=== PATIENT | female | born 1990 | race Caucasian/White ===

== ENCOUNTER 2016-07-04 09:34 | Emergency (ER) | payer BC ==
[2016-07-04 10:36] VITALS: BP 115/68
--- NOTE | 2016-07-04 10:59 | UC ---
Respiratory Complaint HPI - HPI Summary HPI Summary: 25 yo female with sore throat/ear ache/cough and chest tightness Has had fever and chills - History of Current Complaint Chief Complaint: UCRespiratory Stated Complaint: THROAT,FEVER,ABDOMINAL PAIN Time Seen by Provider: 07/04/16 10:50 Hx Obtained From: Patient Hx Last Menstrual Period: 07/03/15 Onset/Duration: Gradual Onset, Lasting Days Timing: Constant Severity Initially: Mild Severity Currently: Moderate Pain Intensity: 2 Character: Cough: Nonproductive Aggravating Factors: Nothing Alleviating Factors: Bronchodilator Associated Signs And Symptoms: Positive: Wheezing - Allergies/Home Medications Allergies/Adverse Reactions: Allergies Allergy/AdvReac Type Severity Reaction Status Date / Time Amoxicillin [From Augmentin] Allergy LARGE HIVES Verified 07/04/16 10:29 Clavulanic Acid Allergy LARGE HIVES Verified 07/04/16 10:29 [From Augmentin] nickel, gold, cobalt Allergy Rash Uncoded 07/04/16 10:29 Home Medications: Home Medications Control 1 tab PO DAILY 07/04/16 [History Confirmed 07/04/16] Pseudoephedrine HCL ER TAB* [Sudafed 12 Hour*] 120 mg PO BID 07/04/16 [History Confirmed 07/04/16] PMH/Surg Hx/FS Hx/Imm Hx Endocrine History Of: Denies: Diabetes Cardiovascular History Of: Denies: Hypertension, Pacemaker/ICD Respiratory History Of: Reports: Asthma - PRN INHALER GI/ History Of: Denies: Renal Disease - Surgical History Surgical History: Yes Surgery Procedure, Year, and Place: WISDOM TEETH REMOVAL-DR. FARIA'S OFFICE. RT WRIST GANGLION CYST [id number]. Egg donation 02/2016 - Family History Known Family History: Positive: Hypertension - Social History Alcohol Use: Occasionally Alcohol Amount: 4 DRINKS PER WEEK Substance Use Type: None Smoking Status (MU): Never Smoked Tobacco Review of Systems Constitutional: Fever, Chills Skin: Negative Eyes: Negative ENT: Sore Throat, Ear Ache Respiratory: Cough Cardiovascular: Negative Gastrointestinal: Negative Genitourinary: Negative Motor: Negative Neurovascular: Negative Musculoskeletal: Negative Neurological: Negative Psychological: Negative All Other Systems Reviewed And Are Negative: Yes Physical Exam Triage Information Reviewed: Yes Appearance: Well-Appearing, No Pain Distress, Well-Nourished Vital Signs: Initial Vital Signs Temp 98.5 F 07/04/16 10:12 Pulse 83 07/04/16 10:12 Resp 14 07/04/16 10:12 BP 115/68 07/04/16 10:12 Pulse Ox 98 07/04/16 10:12 Vital Signs Reviewed: Yes Eyes: Positive: Conjunctiva Clear ENT: Positive: Hearing grossly normal, Pharyngeal erythema, Nasal congestion, Nasal drainage, TM red - right. Negative: Tonsillar swelling, Tonsillar exudate , Trismus, Muffled/hoarse voice Dental: Negative: Dental Fracture @, Abscess @ Neck: Positive: Supple, Enlarged Nodes @ - ant cervical Respiratory: Positive: Lungs clear, Normal breath sounds, No respiratory distress Cardiovascular: Positive: RRR, No Murmur, Pulses Normal Abdomen Description: Positive: Nontender, No Organomegaly, Soft Musculoskeletal: Positive: ROM Intact, No Edema Neurological: Positive: Alert, Muscle Tone Normal Psychological Exam: Normal Skin Exam: Normal UC Diagnostic Evaluation - Laboratory O2 Sat by Pulse Oximetry: 98 - normal/not hypoxic Respiratory Course/Dx - Differential Dx/Diagnosis Provider Diagnoses: right otitis media. acute bronchitis Discharge - Discharge Plan Condition: Stable Disposition: HOME Prescriptions: Azithromycin TAB* [Zithromax TAB*] 250 mg PO DAILY #6 tab Prednisone [Deltasone] 40 mg PO DAILY #10 tab Patient Education Materials: Acute Bronchitis (ED) Forms: *Work Release Referrals: No Primary Care Phys,NOPCP [Primary Care Provider] - Additional Instructions: use your inhaler 2 puffs 4x day for 5 days recheck in 4 days if not better
== END 2016-07-04 11:06 | disposition home or self-care (01) ==
LOC: UCCORT 09:34
DX: H66.91 Otitis media, unspecified, right ear (principal); J40 Bronchitis, not specified as acute or chronic; Z88.0 Allergy status to penicillin; Z88.1 Allergy status to other antibiotic agents
CPT/HCPCS: 81025; 99212; G0463

== ENCOUNTER 2016-10-26 20:20 | Emergency (ER) | payer BC ==
[2016-10-26 20:33] VITALS: BP 118/66
--- NOTE | 2016-10-26 20:49 | UC ---
Dizzy HPI - History Of Current Complaint Chief Complaint: UCDizziness Stated Complaint: DIZZINESS Time Seen by Provider: 10/26/16 20:43 Hx Obtained From: Patient Hx Last Menstrual Period: 10/15/16 ?: No Onset/Duration: Sudden Onset - dizziness like a rocking back and forth like being on a boat. Was from the afternoon into the evening up until yesterday., Lasting Weeks - 1, Worse Since - since this morning. Timing: Constant Severity Initially: Mild Severity Currently: Moderate Character: Dizzy - rocking back and forth, side to side. Aggravating Factor(s): Position Change - will worsen for 5-6 seconds., Supine To Erect Alleviating Factor(s): Rest, Lying Down Associated Signs And Symptoms: Positive: Tinnitus - has right ear tinnitus chronically, Unsteady Gait. Negative: Nausea, Vomiting, Diaphoresis - Risk Factors Cardiac Risk Factors: Negative CVA Risk Factor: Oral Contraceptives - Allergies/Home Medications Allergies/Adverse Reactions: Allergies Allergy/AdvReac Type Severity Reaction Status Date / Time Amoxicillin [From Augmentin] Allergy LARGE HIVES Verified 10/26/16 20:33 Clavulanic Acid Allergy LARGE HIVES Verified 10/26/16 20:33 [From Augmentin] nickel, gold, cobalt Allergy Rash Uncoded 10/26/16 20:33 Home Medications: Home Medications Acetaminophen [Acetaminophen Extra Stren] 1,000 mg PO Q6H PRN 10/26/16 [History Confirmed 10/26/16] Allergy Im 1 udc IM SEE INSTRUCTIONS 10/26/16 [History] Beclomethasone Dipropionate [Qvar] 2 inh IN BID 10/26/16 [History Confirmed 01/05] Cholecalciferol [Vitamin D3] 1,000 unit PO DAILY 10/26/16 [History Confirmed 01/05] Ethinyl Estrad/Desogest(NF) [Emoquette 0.03/0.15 (NF)] 1 tab PO DAILY 10/26/16 [ History Confirmed 10/26/16] Naproxen Sodium [Naproxen Sodium 220 mg] 440 mg PO DAILY 10/26/16 [History Confirmed 10/26/16] PMH/Surg Hx/FS Hx/Imm Hx Endocrine History Of: Denies: Diabetes Cardiovascular History Of: Denies: Hypertension, Pacemaker/ICD Respiratory History Of: Reports: Asthma - PRN INHALER GI/ History Of: Denies: Renal Disease - Surgical History Surgical History: Yes Surgery Procedure, Year, and Place: WISDOM TEETH REMOVAL-DR. FARIA'S OFFICE. RT WRIST GANGLION CYST REMOVED-2009, 2014-[facility]. I&D OF RIGHT WRIST CYST X 2 SINCE LAST SX. - Family History Known Family History: Positive: None, Unknown, Hypertension, Diabetes Negative: Cardiac Disease - Social History Occupation: Employed Full-time Lives: Alone Alcohol Use: Occasionally Alcohol Amount: 1-2 PER WK Substance Use Type: None Smoking Status (MU): Never Smoked Tobacco Have You Smoked in the Last Year: No Review of Systems ENT: Ear Ache All Other Systems Reviewed And Are Negative: Yes Physical Exam Triage Information Reviewed: Yes Completion Of Physical Exam Limited Due To: Extremis Appearance: Well-Appearing - but being careful not to move her head., No Pain Distress, Well-Nourished Vital Signs: Initial Vital Signs Temp 98 F 10/26/16 20:25 Pulse 77 10/26/16 20:25 Resp 18 10/26/16 20:25 BP 118/66 10/26/16 20:25 Pulse Ox 98 10/26/16 20:25 Vital Signs Reviewed: Yes Eyes: Positive: Conjunctiva Clear, Other: - positive lateral nystagmus ENT: Positive: Nasal congestion - with allergic changes, TMs normal Dental Exam: Normal Neck exam: Normal Respiratory: Positive: Wheezing - scant expiratory with cough Cardiovascular Exam: Normal Musculoskeletal Exam: Normal Neurological: Positive: Other: - lateral nystagmus. Psychological Exam: Normal Skin Exam: Normal Dizzy Course/Dx - Differential Dx/Diagnosis Differential Diagnosis/HQI/PQRI: Benign Paroxysmal Positional Vertigo, Meniere' s Disease, Vasovagal Reaction Provider Diagnoses: Vertigo. Allergic rhinitis Discharge - Discharge Plan Condition: Stable Disposition: HOME Prescriptions: Meclizine TAB* [Antivert 12.5 TAB*] 25 mg PO TID PRN #30 tab PRN Reason: Vertigo predniSONE TAB* [Deltasone TAB*] 20 mg PO DAILY #18 tab Patient Education Materials: Vertigo (ED), Allergic Rhinitis (ED), Prednisone ( By mouth) Referrals: No Primary Care Phys,NOPCP [Primary Care Provider] - If Needed (If getting worse go to the ER.) Additional Instructions: NEILMED SINUS RINSE: CHECK OUT AT [email or web address] Saline nasal wash helps with mucous, allergies and congestion. It can be used up to twice a day or only as needed. Use lukewarm tap water. It does not have to be sterilized or distilled water. Do 1/3 on each side and snort out of both nostrils. Repeat the process with 1/6 of the bottle on each side with snorting in between to finish the solution in the bottle
[2016-10-26] MEDS ORDERED: Meclizine TAB* 12.5 MG PO ONE (21:05)
[2016-10-26] MEDS ORDERED: predniSONE TAB* 20 MG PO ONE (21:05)
== END 2016-10-26 21:24 | disposition home or self-care (01) ==
LOC: UCCORT 20:20
DX: R42 Dizziness and giddiness (principal); J45.909 Unspecified asthma, uncomplicated; H93.11 Tinnitus, right ear; Z88.1 Allergy status to other antibiotic agents
CPT/HCPCS: 99212; A9270-GY; G0463; J7512

== ENCOUNTER 2017-04-04 10:25 | Emergency (ER) | payer BC ==
[2017-04-04 11:47] VITALS: BP 112/72
--- NOTE | 2017-04-04 12:04 | UC ---
Throat Pain/Nasal Connor HPI - HPI Summary HPI Summary: per rolled ham lacer "sore throat for a couple of days. tongue is sore and white. she uses Qvar daily and is concerned that she may have thrush." mild ST, no fever. used albuterol recently b/c she had sx after running d/t not using the aerochamber recently. no cough or wheezing now. - History of Current Complaint Chief Complaint: UCGeneralIllness Stated Complaint: WORRIED ABOUT THRUSH Time Seen by Provider: 04/04/17 11:41 Hx Last Menstrual Period: nexplanon - Allergies/Home Medications Allergies/Adverse Reactions: Allergies Allergy/AdvReac Type Severity Reaction Status Date / Time Amoxicillin [From Augmentin] Allergy LARGE HIVES Verified 04/04/17 11:47 Clavulanic Acid Allergy LARGE HIVES Verified 04/04/17 11:47 [From Augmentin] nickel, gold, cobalt Allergy Rash Uncoded 04/04/17 11:47 Home Medications: Home Medications Etonogestrel [Nexplanon] 68 mg IMPLANT ONCE 04/04/17 [History Confirmed 04/04/17 ] PMH/Surg Hx/FS Hx/Imm Hx Previously Healthy: Yes Respiratory History: Asthma - Surgical History Surgical History: Yes Surgery Procedure, Year, and Place: WISDOM TEETH REMOVAL-DR. FARIA'S OFFICE. RT WRIST GANGLION CYST REMOVED-2009, 2014-[facility]. I&D OF RIGHT WRIST CYST X 2 SINCE LAST SX. - Family History Known Family History: Positive: None, Unknown, Hypertension, Diabetes Negative: Cardiac Disease, Respiratory Disease - no asthma - Social History Alcohol Use: Occasionally Alcohol Amount: 1-2 PER WK Substance Use Type: None Smoking Status (MU): Never Smoked Tobacco Have You Smoked in the Last Year: No Review of Systems Constitutional: Negative Skin: Negative Eyes: Other - tongue white coating ENT: Negative Respiratory: Negative Cardiovascular: Negative Gastrointestinal: Negative Genitourinary: Negative Motor: Negative Neurovascular: Negative Musculoskeletal: Negative Neurological: Negative Psychological: Negative Is Patient Immunocompromised?: No All Other Systems Reviewed And Are Negative: Yes Physical Exam Triage Information Reviewed: Yes Appearance: Well-Appearing, No Pain Distress, Well-Nourished - very pleasant Vital Signs: Initial Vital Signs Temp 98.3 F 04/04/17 11:42 Pulse 86 04/04/17 11:42 Resp 14 04/04/17 11:42 BP 112/72 04/04/17 11:42 Pulse Ox 97 04/04/17 11:42 Eye Exam: Normal ENT Exam: Normal ENT: Positive: Pharynx normal, TMs normal, Other: - tongue has thin white coating that cannot be removed coverring. OP - nml Dental Exam: Normal Neck exam: Normal Neck: Positive: Supple, Nontender, No Lymphadenopathy Respiratory: Positive: Lungs clear, Normal breath sounds. Negative: Crackles, Rhonchi, Stridor Cardiovascular Exam: Normal Cardiovascular: Positive: RRR, No Murmur, Pulses Normal Abdominal Exam: Normal Abdomen Description: Positive: Nontender, Soft Throat Pain/Nasal Course/Dx - Differential Dx/Diagnosis Differential Diagnosis/HQI/PQRI: Laryngitis, Peritonsillar Abscess, Pharyngitis , URI, Other - thrush Provider Diagnoses: oral candidiasis Discharge - Discharge Plan Condition: Stable Disposition: HOME Prescriptions: Nystatin SUSPENSION* 100,000 unit MT Q6HR #480 [facility] Patient Education Materials: Oral Candidiasis (ED) Referrals: No Primary Care Phys,NOPCP [Primary Care Provider] - Additional Instructions: follow up with your provider if your symptoms increase or persist.
== END 2017-04-04 12:16 | disposition home or self-care (01) ==
LOC: UCCORT 10:25
DX: B37.0 Candidal stomatitis (principal); Z88.1 Allergy status to other antibiotic agents; Z88.6 Allergy status to analgesic agent; Z91.048 Other nonmedicinal substance allergy status
CPT/HCPCS: 99212; G0463

== ENCOUNTER 2017-07-26 16:10 | Emergency (ER) | payer BC ==
--- OUTSIDE RECORDS SUMMARY | 2017-07-26 18:36 | XMS REPORT ---
:1990 External Reference #:[id number] Author Organization [facility] Address [address] [place] [address] Phone [phone] Care Team Providers Name Role Phone Maicol Garcia MD Care Team Information [employer] Worker Unavailable Payers Type Date Identification Numbers Payment Provider Subscriber Commercial Policy Number: [id number] BS [employer] Maryan You PayID: [id number] [address] [address] [place] [address] Problems Date Description Provider Status Onset: 10/07/2016 Exacerbation of moderate Catherine S. Fenstermacher, Active persistent asthma RPA-C Onset: 09/16/2016 Uncomplicated moderate persistent Catherine S. Fenstermacher, Active asthma RPA-C Onset: 01/24/2016 Mild persistent asthma Catherine S. Fenstermacher, Active RPA-C Onset: 01/24/2016 Allergic rhinitis Catherine S. Fenstermacher, Active RPA-C Onset: 01/24/2016 Allergic rhinitis due to pollen Catherine S. Fenstermacher, Active RPA-C Family History Date Family Member(s) Problem(s) Comments General No Current Problems Social History Type Date Description Comments Smoke-Free Home is smoke-free Pets 1 cat Smoking Patient has never smoked Smoking No Second Hand Smoke Exposure Allergies, Adverse Reactions, Alerts Date Description Reaction Status Severity Comments 01/24/2016 Augmentin active Medications Medication Date Status Form Strength Qnty SIG Indications Ordering Provider Proair HFA 06/03/ Active Aerosol 108(90Base 2units 2 puffs Maicol 2015 ) mcg/Act every 4 as Griffin Garcia MD needed Qvar 08/04/ Active Aerosol 80mcg/Act 1units Inhale 2 J45.30 Christopher 2016 puffs by Griffin Garcia MD inhalation route 2 times per day. Rinse mouth after use. Singulair / Active Tablets 10mg 30tabs Take 1 Christopher tablet (10 Griffin Garcia MD mg) by oral route once daily in the evening. Xyzal / Active Tablets 5mg 30tabs Take one Christopher 0000 tablet (5 Griffin Garcia MD mg) by oral route once daily as needed. Biotin / Active Tablets [id number] Unknown Maximum 0000 Strength Vitamin D / Active Unknown 0000 Nexplanon / Active Implant 68mg Unknown 0000 Prednisone 10/07/ Hx Tablets 10mg 30tabs Take 3 J45.41 Christopher 2016 - tablets by Griffin Garcia MD 03/19/ mouth twice 2017 a day for 5 days. Take with food. Cryselle-28 / Hx Tablets 0.3-30mg-m Unknown 0000 - cg 2016 Medications Administered in Office Medication Date Status Form Strength Qnty SIG Indications Ordering Provider Allergy 06/18/ Administered Injection Christopher Injection 2 2016 Griffin Garcia MD Or More Allergy 06/02/ Administered Injection Christopher Injection 2 2016 Griffin Garcia MD Or More Allergy 05/21/ Administered Injection Christopher Injection 2 2016 Griffin Garcia MD Or More Allergy 04/30/ Administered Injection Christopher Injection 2 2017 Griffin Garcia MD Or More Allergy 04/16/ Administered Injection Christopher Injection 2 2016 Griffin Garcia MD Or More Allergy 04/02/ Administered Injection Christopher Injection 2 2017 Griffin Garcia MD Or More Allergy 03/12/ Administered Injection Christopher Injection 2 2017 Griffin Garcia MD Or More Allergy 02/26/ Administered Injection Christopher Injection 2 2017 Griffin Garcia MD Or More Allergy 02/12/ Administered Injection Christopher Injection 2 2017 Griffin Gracia MD Or More Allergy 01/27/ Administered Injection Christopher Injection 2 2017 Griffin Garcia MD Or More Allergy 01/13/ Administered Injection Christopher Injection 2 2017 Griffin Garcia MD Or More Allergy 12/30/ Administered Injection Christopher Injection 2 2017 Griffin Garcia MD Or More Allergy 12/16/ Administered Injection Christopher Injection 2 2016 Griffin Garcia MD Or More Allergy 12/02/ Administered Injection Christopher Injection 2 2016 Griffin Garcia MD Or More Allergy 11/20/ Administered Injection Christopher Injection 2 2016 Griffin Garcia MD Or More Allergy 11/06/ Administered Injection Christopher Injection 2 2016 Griffin Garcia MD Or More Allergy 10/14/ Administered Injection Christopher Injection 2 2016 Griffin Garcia MD Or More Allergy 09/25/ Administered Injection Christopher Injection 2 2016 Griffin Garcia MD Or More Allergy 09/16/ Administered Injection Christopher Injection 2 2016 Griffin Garcia MD Or More Allergy 09/09/ Administered Injection Christopher Injection 2 2016 Griffin Garcia MD Or More Allergy 08/28/ Administered Injection Christopher Injection 2 2016 Griffin Garcia MD Or More Allergy 08/21/ Administered Injection Christopher Injection 2 2016 Griffin Garcia MD Or More Allergy 08/14/ Administered Injection Christopher Injection 2 2016 Griffin Garcia MD Or More Allergy 08/05/ Administered Injection Christopher Injection 2 2016 Griffin Garcia MD Or More Allergy 07/31/ Administered Injection Christopher Injection 2 2016 Griffin Garcia MD Or More Allergy 07/24/ Administered Injection Christopher Injection 2 2016 Griffin Garcia MD Or More Allergy 07/15/ Administered Injection Christopher Injection 2 2016 Griffin Garcia MD Or More Allergy 07/08/ Administered Injection Christopher Injection 2 2016 Griffin Garcia MD Or More Allergy 06/24/ Administered Injection Christopher Injection 2 2016 Griffin Garcia MD Or More Allergy 06/19/ Administered Injection Christopher Injection 2 2015 Griffin Garcia MD Or More Allergy 06/10/ Administered Injection Christopher Injection 2 2015 Griffin Garcia MD Or More Allergy 06/03/ Administered Injection Christopher Injection 2 2015 Griffin Garcia MD Or More Allergy 05/29/ Administered Injection Christopher Injection 2 2015 Griffin Garcia MD Or More Allergy 05/22/ Administered Injection Christopher Injection 2 2015 Griffin Garcia MD Or More Allergy 05/13/ Administered Injection Christopher Injection 2 2015 Griffin Garcia MD Or More Allergy 05/06/ Administered Injection Christopher Injection 2 2015 Griffin Garcia MD Or More Allergy 05/01/ Administered Injection Christopher Injection 2 2015 Griffin Garcia MD Or More Allergy 04/22/ Administered Injection Christopher Injection 2 2015 Griffin Garcia MD Or More Allergy 04/17/ Administered Injection Christopher Injection 2 2015 Griffin Garcia MD Or More Allergy 04/08/ Administered Injection Christopher Injection 2 2015 Griffin Garcia MD Or More Allergy 04/01/ Administered Injection Christopher Injection 2 2015 Griffin Garcia MD Or More Allergy 03/27/ Administered Injection Christopher Injection 2 2015 Griffin Garcia MD Or More Allergy 03/18/ Administered Injection Christopher Injection 2 2015 Griffin Garcia MD Or More Allergy 03/11/ Administered Injection Christopher Injection 2 2015 Griffni Garcia MD Or More Allergy 03/06/ Administered Injection Christopher Injection 2 2015 Griffin Garcia MD Or More Allergy 02/27/ Administered Injection Christopher Injection 2 2015 Griffin Garcia MD Or More Allergy 02/20/ Administered Injection Christopher Injection 2 2015 Griffin Garcia MD Or More Allergy 02/13/ Administered Injection Christopher Injection 2 2015 Griffin Garcia MD Or More Allergy 02/06/ Administered Injection Christopher Injection 2 2015 Griffin Garcia MD Or More Vital Signs Date Vital Result Comment 06/02/2017 Height 65 inches 5'5" Weight 160.00 lb BMI (Body Mass Index) 26.6 kg/m2 Heart Rate 64 /min Respiratory Rate 16 /min Body Temperature 98.1 F O2 % BldC Oximetry 98 % 03/19/2017 BP Systolic 108 mmHg BP Diastolic 64 mmHg Height 56 inches 4'8" Weight 162.00 lb BMI (Body Mass Index) 36.3 kg/m2 Heart Rate 97 /min Respiratory Rate 10 /min Body Temperature 98.4 F O2 % BldC Oximetry 97 % 09/16/2016 BP Systolic 124 mmHg BP Diastolic 77 mmHg Height 56 inches 4'8" Weight 170.00 lb BMI (Body Mass Index) 38.1 kg/m2 Heart Rate 69 /min Respiratory Rate 14 /min 03/18/2016 BP Systolic 120 mmHg BP Diastolic 60 mmHg Height 56 inches 4'8" Heart Rate 82 /min Respiratory Rate 12 /min O2 % BldC Oximetry 95 % 01/24/2016 BP Systolic 119 mmHg BP Diastolic 75 mmHg Height 65 inches 5'5" Weight 173.00 lb BMI (Body Mass Index) 28.8 kg/m2 Heart Rate 77 /min Respiratory Rate 16 /min Body Temperature 98.9 F O2 % BldC Oximetry 100 % Results Description No Information Procedures Date CPT Code Description Status 06/18/2017 98798 Allergy Injection 2 Or More Completed 06/02/2017 90647 Allergy Injection 2 Or More Completed 06/02/2017 73875 Nitric Oxide Gas Determination Completed 06/02/2017 22441 Bronchodilation Responsiveness Spirometry Pre/Post Completed Bronchodil Adm 05/21/2017 15582 Allergy Injection 2 Or More Completed 04/30/2017 37687 Allergy Injection 2 Or More Completed 04/16/2017 09259 Allergy Injection 2 Or More Completed 04/02/2017 14735 Allergy Injection 2 Or More Completed 03/19/2017 35257 Nitric Oxide Gas Determination Completed 03/19/2017 23459 Bronchodilation Responsiveness Spirometry Pre/Post Completed Bronchodil Adm 03/12/2017 41914 Allergy Injection 2 Or More Completed 02/26/2017 74938 Allergy Injection 2 Or More Completed 02/25/2017 94570 Allergy Antigens Single Or Multiple Completed 02/12/2017 37261 Allergy Injection 2 Or More Completed 01/27/2017 75173 Allergy Injection 2 Or More Completed 01/13/2017 17725 Allergy Injection 2 Or More Completed 12/30/2016 49323 Allergy Injection 2 Or More Completed 12/16/2016 82420 Allergy Injection 2 Or More Completed 12/02/2016 09384 Allergy Injection 2 Or More Completed 11/20/2016 80598 Allergy Injection 2 Or More Completed 11/06/2016 84594 Allergy Injection 2 Or More Completed 10/14/2016 14417 Allergy Injection 2 Or More Completed 10/07/2016 46357 Nitric Oxide Gas Determination Completed 09/25/2016 43990 Allergy Injection 2 Or More Completed 09/16/2016 45820 Allergy Injection 2 Or More Completed 09/16/2016 91849 Nitric Oxide Gas Determination Completed 09/16/2016 52316 Bronchodilation Responsiveness Spirometry Pre/Post Completed Bronchodil Adm 09/09/2016 75390 Allergy Injection 2 Or More Completed 08/28/2016 67803 Allergy Injection 2 Or More Completed 08/21/2016 74418 Allergy Injection 2 Or More Completed 08/14/2016 55500 Allergy Injection 2 Or More Completed 08/05/2016 92946 Allergy Injection 2 Or More Completed 07/31/2016 92050 Allergy Injection 2 Or More Completed 2016 04934 Allergy Injection 2 Or More Completed 07/15/2016 21260 Allergy Injection 2 Or More Completed 07/08/2016 64842 Allergy Injection 2 Or More Completed 06/24/2016 53841 Allergy Injection 2 Or More Completed 06/19/2016 43437 Allergy Injection 2 Or More Completed 06/10/2016 13594 Allergy Injection 2 Or More Completed 06/03/2016 72533 Allergy Injection 2 Or More Completed 05/29/2016 48404 Allergy Injection 2 Or More Completed 05/22/2016 42878 Allergy Injection 2 Or More Completed 05/13/2016 97110 Allergy Injection 2 Or More Completed 05/06/2016 32669 Allergy Injection 2 Or More Completed 05/01/2016 94317 Allergy Injection 2 Or More Completed 04/22/2016 15805 Allergy Injection 2 Or More Completed 04/17/2016 48001 Allergy Injection 2 Or More Completed 04/08/2016 45352 Allergy Injection 2 Or More Completed 04/01/2016 66235 Allergy Injection 2 Or More Completed 03/27/2016 52071 Allergy Injection 2 Or More Completed 03/18/2016 65902 Allergy Injection 2 Or More Completed 03/18/2016 26702 Bronchodilation Responsiveness Spirometry Pre/Post Completed Bronchodil Adm 03/11/2016 35507 Allergy Injection 2 Or More Completed 03/06/2016 34064 Allergy Injection 2 Or More Completed 02/28/2016 16439 Allergy Injection 2 Or More Completed 02/21/2016 64186 Allergy Injection 2 Or More Completed 02/14/2016 99963 Allergy Injection 2 Or More Completed 02/07/2016 87304 Allergy Injection 2 Or More Completed 01/30/2016 35922 Allergy Antigens Single Or Multiple Completed 01/24/2016 21417 Bronchodilation Responsiveness Spirometry Pre/Post Completed Bronchodil Adm Encounters Type Date Location Provider CPT E/M Dx Office Visit 06/02/2017 8:15[place] [address] J45.40 Office Visit 03/19/2017 3:30p Kee Bird RPA-C 55132 J45.40 J30.1 J30.89 Office Visit 10/07/2016 8:30a Kee Bird RPA-C 52959 J45.41 Office Visit 09/16/2016 3:30p Kee Bidr RPA-C 55150 J45.40 J30.1 J30.89 Office Visit 03/18/2016 3:30p Kee Bird RPA-C 98158 J45.30 J30.1 J30.89 Office Visit 01/24/2016 3:30p KeeKAPIL Brewer 61512 J30.1 J30.89 J45.30 Plan of Care Future Appointment(s):07/02/2017 3:55 pm - Injection 1 at [facility]/29/2018 3 :15 pm - KAPIL Elmore at [place]
[2017-07-26 18:47] VITALS: BP 107/65
--- NOTE | 2017-07-26 19:36 | RAD ---
INDICATION: Right knee pain after skiing injury COMPARISON: None TECHNIQUE: 4 view radiograph of the right knee. FINDINGS: The visualized bones are well-corticated and properly aligned. The joint spaces are properly maintained. There is no radiographic evidence of joint effusion. There is no acute fracture, dislocation or other focal bony abnormality. IMPRESSION: Normal knee radiograph as described above. If the patient's symptoms persist, follow-up imaging is recommended.
--- NOTE | 2017-07-26 19:54 | RAD ---
INDICATION: Left knee pain after a fall while skiing COMPARISON: None TECHNIQUE: 4 view radiograph of the left knee. FINDINGS: The visualized bones are well-corticated and properly aligned. The joint spaces are properly maintained. There is no radiographic evidence of joint effusion. There is no acute fracture, dislocation or other focal bony abnormality. IMPRESSION: Normal knee radiograph as described above. If the patient's symptoms persist, follow-up imaging is recommended.
--- NOTE | 2017-07-26 20:03 | UC ---
Knee Pain HPI - HPI Summary HPI Summary: Pt reports that she was skiing today and feel onto bilateral knees, C/O of right knee more painful than left. reports bilateral bruising. Pain with weight bearing and ROM - History of Current Complaint Chief Complaint: UCLowerExtremity Stated Complaint: RIGHT KNEE INJURY Time Seen by Provider: 07/26/17 19:04 Hx Obtained From: Patient Hx Last Menstrual Period: NEXPLANON ?: No Onset/Duration: Sudden Onset, Still Present Severity Initially: Mild Severity Currently: Moderate Pain Intensity: 4 Character: Dull, Aching Aggravating Factor(s): Movement, Weight Bearing, Prolonged Standing, Stairs Alleviating Factor(s): Rest, Position Associated Signs And Symptoms: Positive: Bruising - bilateral knees anterior Able to Bear Weight: Yes - with c/o pain - Risk Factors Septic Arthritis Risk Factor: Negative - Allergies/Home Medications Allergies/Adverse Reactions: Allergies Allergy/AdvReac Type Severity Reaction Status Date / Time amoxicillin [From Augmentin] Allergy Hives Verified 07/26/17 18:38 clavulanic acid Allergy Hives Verified 07/26/17 18:38 [From Augmentin] nickel, gold, cobalt Allergy Rash Uncoded 04/04/17 11:47 PMH/Surg Hx/FS Hx/Imm Hx Previously Healthy: Yes - Surgical History Surgical History: Yes Surgery Procedure, Year, and Place: WISDOM TEETH REMOVAL-DR. FARIA'S OFFICE. RT WRIST GANGLION CYST REMOVED-2009, 2014-[facility]. I&D OF RIGHT WRIST CYST X 2 SINCE LAST SX. - Family History Known Family History: Positive: None, Unknown, Hypertension, Diabetes Negative: Cardiac Disease, Respiratory Disease - no asthma - Social History Occupation: Employed Full-time Lives: With Family Alcohol Use: Weekly Alcohol Amount: 1-2 PER WK Substance Use Type: None Smoking Status (MU): Never Smoked Tobacco Have You Smoked in the Last Year: No Review of Systems Constitutional: Negative Skin: Bruising - bialteral knees/anterior Eyes: Negative ENT: Negative Respiratory: Negative Cardiovascular: Negative Gastrointestinal: Negative Genitourinary: Negative Motor: Decreased ROM - bialteral knee secondary to pain Neurovascular: Negative Musculoskeletal: Arthralgia - bialteral knees, Decreased ROM, Myalgia Neurological: Negative Psychological: Negative Is Patient Immunocompromised?: No All Other Systems Reviewed And Are Negative: Yes Physical Exam Triage Information Reviewed: Yes Appearance: Well-Appearing Vital Signs: Initial Vital Signs Temp 98.6 F 07/26/17 18:41 Pulse 76 07/26/17 18:41 Resp 20 07/26/17 18:41 BP 107/65 07/26/17 18:41 Pulse Ox 99 07/26/17 18:41 Vital Signs Reviewed: Yes Eye Exam: Normal ENT Exam: Normal Neck exam: Normal Respiratory: Positive: No respiratory distress Musculoskeletal Exam: Other Musculoskeletal: Positive: ROM Limited @ - bialteral knees secondary to apin, Other: - half dollar size ecchymosis bilateral; knees Neurological Exam: Normal Psychological Exam: Normal Skin Exam: Other - ecchymosis, bilateral knees/patella negative drawer, negative mcmurrays. Diagnostics - Radiology No standard instances Radiology Interpretation Completed By: Radiologist - Right knee: IMPRESSION: Normal knee radiograph as described above. Left knee: The visualized bones are well-corticated and properly aligned. The joint spaces are properly maintained. There is no radiographic evidence of joint effusion. There is no acute fracture , dislocation or other focal bony abnormality. IMPRESSION: Normal knee radiograph as described above. If the patient's symptoms persist, follow-up imaging is recommended. Knee Pain Course/Dx - Course Course Of Treatment: I discussed xray reports and referred pt to orthopedic provider for further evaluation and testing. Pt verbalized understanding and agreed to plan of care. - Differential Dx/Diagnosis Differential Diagnosis/HQI/PQRI: Contusion, Sprain, Strain Provider Diagnoses: bilateral knee contusion. bilateral knee pain. right knee sprain Discharge - Discharge Plan Condition: Stable Disposition: HOME Patient Education Materials: Contusion in Adults (ED), Knee Pain (ED), R.I.C.E. Treatment (ED) Referrals: Mark Leonard MD [Medical Doctor] - If Needed No Primary Care Phys,NOPCP [Primary Care Provider] -
== END 2017-07-26 20:13 | disposition home or self-care (01) ==
LOC: UCCORT 16:10
DX: S83.91XA Sprain of unspecified site of right knee, initial encounter (principal); S80.02XA Contusion of left knee, initial encounter; S80.01XA Contusion of right knee, initial encounter; Y93.23 Activity, snow (alpine) (downhill) skiing, snowboarding, sledding, tobogganing and snow tubing; Y92.9 Unspecified place or not applicable; Z72.89 Other problems related to lifestyle
CPT/HCPCS: 99211; G0463

== ENCOUNTER 2017-08-21 18:55 | Emergency (ER) | payer BC ==
[2017-08-21 19:31] VITALS: BP 110/63
--- NOTE | 2017-08-21 19:42 | UC ---
Abdominal Pain Female HPI - HPI Summary HPI Summary: Pt c/o gradual onset of RUQ pain that began 4 days ago, has slightly worsened. Pt denies fever, chills, or vomiting. Denies HX of PE or clotting diorder. Pt had Nexplanon implant inserted 4 months ago.. Pt has been amenorrhea since insertion, reports passed large blood clot tennis ball size, with brown discharge since clot passed. Pt states has decreased appetite, pain worsens slightly with fatty food. - History of Current Complaint Chief Complaint: UCAbdominalPain Stated Complaint: ABD PAIN Time Seen by Provider: 08/21/17 19:19 Hx Obtained From: Patient Hx Last Menstrual Period: nexplanon ?: No Onset/Duration: Gradual Onset, Lasting Days, Still Present, Worse Since - osnet Timing: Constant Severity Initially: Mild Severity Currently: Moderate Pain Intensity: 8 Location: Discrete At: RUQ Radiates: No Character: Dull, Sharp Aggravating Factor(s): Food, Movement, Deep Breaths Alleviating Factor(s): Nothing Associated Signs and Symptoms: Positive: Decreased Appetite, Vaginal Bleeding, Nausea - Risk Factors Ectopic Risk Factor: Negative Ovarian Torsion Risk Factor: Reproductive Age Allergies/Adverse Reactions: Allergies Allergy/AdvReac Type Severity Reaction Status Date / Time amoxicillin [From Augmentin] Allergy Hives Verified 08/21/17 19:31 clavulanic acid Allergy Hives Verified 08/21/17 19:31 [From Augmentin] nickel, gold, cobalt Allergy Rash Uncoded 08/21/17 19:31 PMH/Surg Hx/FS Hx/Imm Hx Previously Healthy: Yes - Surgical History Surgical History: Yes Surgery Procedure, Year, and Place: WISDOM TEETH REMOVAL-DR. FARIA'S OFFICE. RT WRIST GANGLION CYST REMOVED-2009, 2014-[facility]. I&D OF RIGHT WRIST CYST X 2 SINCE LAST SX. - Family History Known Family History: Positive: None, Unknown, Hypertension, Diabetes Negative: Cardiac Disease, Respiratory Disease - no asthma - Social History Occupation: Employed Full-time Lives: With Family Alcohol Use: Weekly Alcohol Amount: 1-2 PER WK Substance Use Type: None Smoking Status (MU): Never Smoked Tobacco Have You Smoked in the Last Year: No Review of Systems Constitutional: Fatigue Skin: Negative Eyes: Negative ENT: Negative Respiratory: Negative Cardiovascular: Negative Gastrointestinal: Abdominal Pain, Nausea Genitourinary: Negative Motor: Decreased ROM - upper chest, Neurovascular: Negative Musculoskeletal: Negative Neurological: Negative Psychological: Negative Is Patient Immunocompromised?: No All Other Systems Reviewed And Are Negative: Yes Physical Exam Triage Information Reviewed: Yes Appearance: Ill-Appearing, Pain Distress Vital Signs: Initial Vital Signs Temp 98.0 F 08/21/17 19:20 Pulse 65 08/21/17 19:20 Resp 18 08/21/17 19:20 BP 110/63 08/21/17 19:20 Pulse Ox 100 08/21/17 19:20 Vital Signs Reviewed: Yes Eye Exam: Normal ENT Exam: Normal Dental Exam: Normal Neck exam: Normal Respiratory Exam: Normal Cardiovascular Exam: Normal Abdomen Description: Positive: Other: - RUQ pain Bowel Sounds: Positive: Present Musculoskeletal Exam: Normal Neurological Exam: Normal Psychological Exam: Normal Skin Exam: Normal Abd Pain Female Course/Dx - Course Course Of Treatment: I discussed with the pt my concern for gall bladder disease. Pt verbalized understand and agreed to plan of care. - Differential Dx/Diagnosis Differential Diagnosis: Gall Bladder Disease, Pancreatitis Provider Diagnoses: Gall bladder disease - Physician Notification/Consults Discussed Care of Patient With: Dr. Sharp - accepted pt at [facility] Time Discussed With Above Provider: 19:55 Discharge - Discharge Plan Condition: Stable Disposition: OTHER Discharge Disposition Comment: to [facility] for further evaluation Patient Education Materials: Abdominal Pain (ED) Referrals: [facility] [Outside] No Primary Care Phys,NOPCP [Primary Care Provider] - Additional Instructions: It has been recommended that you get further evaluated at the closest emergency room as soon as possible.
== END 2017-08-21 19:46 ==
LOC: UCCORT 18:55
DX: K82.9 Disease of gallbladder, unspecified (principal); Z88.1 Allergy status to other antibiotic agents; Z88.0 Allergy status to penicillin; Z91.048 Other nonmedicinal substance allergy status
CPT/HCPCS: 99212; G0463

== ENCOUNTER 2017-11-03 18:23 | Emergency (ER) | payer BC ==
[2017-11-03 18:29] VITALS: BP 121/76
[2017-11-03] MEDS ORDERED: predniSONE TAB* 20 MG PO ONE (18:38)
[2017-11-03] MEDS ORDERED: Albuterol 2.5 MG/3 ML NEB.SOL* (0.083%) INH ONE (18:38)
[2017-11-03] MEDS ORDERED: Ipratropium 0.5MG/2.5ML NEB* 0.5 MG/2.5 ML NEB.SOLN INH ONE (18:38)
--- NOTE | 2017-11-03 18:56 | UC ---
Respiratory Complaint HPI - HPI Summary HPI Summary: 27 yo female with the onset of wheezing this AM has had seasonal allergy symptoms x days today had to use her inhaler no cp or SOB when to chiropractor this afternoon to get her sinuses adjusted - History of Current Complaint Chief Complaint: UCRespiratory Stated Complaint: ASTHMA, SOB Time Seen by Provider: 11/03/17 18:32 Hx Obtained From: Patient Hx Last Menstrual Period: 10/26/17 Onset/Duration: Gradual Onset, Lasting Hours Timing: Constant Severity Initially: Mild Severity Currently: Moderate Pain Intensity: 0 Character: Cough: Nonproductive Aggravating Factors: Nothing Alleviating Factors: Bronchodilator Associated Signs And Symptoms: Positive: Wheezing, Nasal Congestion - Allergies/Home Medications Allergies/Adverse Reactions: Allergies Allergy/AdvReac Type Severity Reaction Status Date / Time amoxicillin [From Augmentin] Allergy Hives Verified 11/03/17 18:29 clavulanic acid Allergy Hives Verified 11/03/17 18:29 [From Augmentin] nickel, gold, cobalt Allergy Rash Uncoded 11/03/17 18:29 PMH/Surg Hx/FS Hx/Imm Hx Previously Healthy: Yes Respiratory History: Asthma GI/ History: Ulcer - Surgical History Surgical History: Yes Surgery Procedure, Year, and Place: WISDOM TEETH REMOVAL-DR. FARIA'S OFFICE. RT WRIST GANGLION CYST REMOVED-2009, 2014-[facility]. I&D OF RIGHT WRIST CYST X 2 SINCE LAST SX. - Family History Known Family History: Positive: Hypertension, Diabetes Negative: Cardiac Disease, Respiratory Disease - no asthma - Social History Alcohol Use: Weekly Alcohol Amount: 1-2 PER WK Substance Use Type: None Smoking Status (MU): Never Smoked Tobacco Have You Smoked in the Last Year: No Review of Systems Constitutional: Negative Skin: Negative Eyes: Negative ENT: Nasal Discharge, Sinus Congestion Respiratory: Cough Cardiovascular: Negative Gastrointestinal: Negative Genitourinary: Negative Motor: Negative Neurovascular: Negative Musculoskeletal: Negative Neurological: Negative Psychological: Negative Is Patient Immunocompromised?: No All Other Systems Reviewed And Are Negative: Yes Physical Exam Triage Information Reviewed: Yes Appearance: Well-Appearing, No Pain Distress, Well-Nourished Vital Signs: Initial Vital Signs Temp 99.1 F 11/03/17 18:26 Pulse 77 11/03/17 18:26 Resp 18 11/03/17 18:26 BP 121/76 11/03/17 18:26 Pulse Ox 100 11/03/17 18:26 Vital Signs Reviewed: Yes Eyes: Positive: Conjunctiva Clear ENT: Positive: Hearing grossly normal, Pharynx normal, Nasal congestion, Nasal drainage, TMs normal, Uvula midline. Negative: Trismus, Muffled voice, Hoarse voice, Sinus tenderness Neck: Positive: Supple, Nontender, No Lymphadenopathy Respiratory: Positive: No respiratory distress, No accessory muscle use, Wheezing Cardiovascular: Positive: RRR, No Murmur Musculoskeletal: Positive: ROM Intact, No Edema Neurological: Positive: Alert Psychological Exam: Normal Skin Exam: Normal UC Diagnostic Evaluation - Laboratory O2 Sat by Pulse Oximetry: 100 - normal/not hypoxic Re-Evaluation - Re-Evaluation First Eval Re-Evaluation Time: 19:31 Change: Improved - CTA Respiratory Course/Dx - Differential Dx/Diagnosis Provider Diagnoses: acute bronchospasm. seasonal allergies Discharge - Sign-Out/Discharge Documenting (check all that apply): Discharge/Admit/Transfer - Discharge Plan Condition: Stable Disposition: HOME Prescriptions: predniSONE [Deltasone] 40 mg PO DAILY #8 tab Patient Education Materials: Bronchospasm (ED) Referrals: No Primary Care Phys,NOPCP [Primary Care Provider] - Additional Instructions: use your inhaler 2 puffs 4x day for 5 days recheck for new or worsening symptoms saline nasal spray twice daily - Billing Disposition and Condition Condition: STABLE Disposition: HOME
--- OUTSIDE RECORDS SUMMARY | 2017-11-03 19:40 | XMS REPORT ---
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 Rinse mouth after use. Proair HFA 06/03/ Active Aerosol 108(90Base 2units 2 puffs 2015 ) mcg/Act every 4 as Griffin Garcia MD needed Singulair / Active Tablets 10mg 30tabs take 1 opher 0000 tablet (10 Griffin Garcia MD mg) by oral route once daily in the evening. Xyzal / Active Tablets 5mg 30tabs take one opher 0000 tablet (5 Griffin Garcia MD mg) by oral route once daily as needed. Biotin / Active Tablets 94004lmy Unknown Maximum 0000 Strength Vitamin D / Active once daily Unknown 0000 Nexplanon / Active Implant 68mg Unknown 0000 Qvar 08/31/ Hx Aerosol 80mcg/Act 1units Inhale 2 J45.30 Christopher 2017 - puffs by Griffin Garcia MD 08/30/ inhalation 2018 route 2 times per day. Rinse mouth after use. Flovent HFA 08/12/ Hx Aerosol 44mcg/Act 10.6un 2 puffs J45.30 Christopher 2017 - its twice a day Griffin Garcia MD 10/15/ by 2018 inhalation Prednisone 10/07/ Hx Tablets 10mg 30tabs Take 3 J45.41 Christopher 2016 - tablets by Griffin Garcia MD 03/19/ mouth twice 2017 a day for 5 days. Take with food. Qvar 01/23/ Hx Aerosol 80mcg/Act 1units Inhale 2 J45.30 opher 2015 - puffs by Griffin Garcia MD 08/12/ inhalation 2018 route 2 times per day. Rinse mouth after use. Cryselle-28 / Hx Tablets 0.3-30mg-m Unknown 0000 - cg 2016 Medications Administered in Office Medication Date Status Form Strength Qnty SIG Indications Ordering Provider Allergy 10/15/ Administered Injection Christopher Injection 2 2018 Griffin Garcia MD Or More Allergy 10/01/ Administered Injection Christopher Injection 2 2018 Griffin Garcia MD Or More Allergy 09/03/ Administered Injection Christopher Injection 2 2018 Griffin Garcia MD Or More Allergy 08/11/ Administered Injection Christopher Injection 2 2018 Griffin Garcia MD Or More Allergy 07/21/ Administered Injection Christopher Injection 2 2018 Griffin Garcia MD Or More Allergy 07/09/ Administered Injection Christopher Injection 2 2017 Griffin Garcia MD Or More Allergy 07/02/ Administered Injection Christopher Injection 2 2017 Griffin Garcia MD Or More Allergy 06/18/ Administered Injection Christopher Injection 2 2016 Griffin Garcia MD Or More Allergy 06/02/ Administered Injection Christopher Injection 2 2016 Griffin Garcia MD Or More Allergy 05/21/ Administered Injection Christopher Injection 2 2016 Griffin Garcia MD Or More Allergy 04/30/ Administered Injection Christopher Injection 2 2016 Griffin Garcia MD Or More Allergy 04/16/ Administered Injection Christopher Injection 2 2016 Griffin Garcia MD Or More Allergy 04/02/ Administered Injection Christopher Injection 2 2016 Griffin Garcia MD Or More Allergy 03/12/ Administered Injection Christopher Injection 2 2016 Griffin Garcia MD Or More Allergy 02/26/ Administered Injection Christopher Injection 2 2016 Griffin Garcia MD Or More Allergy 02/12/ Administered Injection Christopher Injection 2 2016 Griffin Garcia MD Or More Allergy 01/27/ Administered Injection Christopher Injection 2 2016 Griffin Garcia MD Or More Allergy 01/13/ Administered Injection Christopher Injection 2 2016 Griffin Garcia MD Or More Allergy 12/30/ Administered Injection Christopher Injection 2 2016 Griffin Garcia MD Or More Allergy 12/16/ Administered Injection Christopher Injection 2 2017 Griffin Garcia MD Or More Allergy 12/02/ Administered Injection Christopher Injection 2 2016 Griffin Garcia MD Or More Allergy // Administered Injection Christopher Injection 2 2016 Griffin Garcia MD Or More Allergy 11/06/ Administered Injection Christopher Injection 2 2016 Griffin Garcia MD Or More Allergy 10/14/ Administered Injection Christopher Injection 2 2016 Griffin Garcia MD Or More Allergy // Administered Injection Christopher Injection 2 2016 Griffin Garcia MD Or More Allergy 09/16/ Administered Injection Christopher Injection 2 2016 Griffin Garcia MD Or More Allergy 09/09/ Administered Injection Christopher Injection 2 2016 Griffin Garcia MD Or More Allergy 08/28/ Administered Injection Christopher Injection 2 2016 Griffin Garcia MD Or More Allergy // Administered Injection Christopher Injection 2 2016 Griffin [...] 03/11/ Administered Injection Christopher Injection 2 2015 Griffin Garcia MD Or More Allergy 03/06/ Administered Injection Christopher Injection 2 2015 Griffin Garcia MD Or More Allergy 02/27/ Administered Injection Christopher Injection 2 2015 Griffin Garcia MD Or More Allergy 02/20/ Administered Injection Christopher Injection 2 2015 Griffin Garcia MD Or More Allergy 02/13/ Administered Injection Christopher Injection 2 2015 Griffin Garcia MD Or More Allergy Injection Christopher Injection 2 2015 Griffin Garcia MD Or More Vital Signs Date Vital Result Comment 10/15/2017 BP Systolic 116 mmHg BP Diastolic 58 mmHg Height 65 inches 5'5" Weight 160.00 lb BMI (Body Mass Index) 26.6 kg/m2 Heart Rate 59 /min Body Temperature 98.7 F O2 % BldC Oximetry 98 % 06/02/2017 Height 65 inches 5'5" Weight 160.00 [...] Information Procedures Date CPT Code Description Status 10/15/2017 39715 Allergy Injection 2 Or More Completed 10/15/2017 97811 Nitric Oxide Gas Determination Completed 10/15/2017 33649 Nitric Oxide Gas Determination Completed 10/15/2017 46839 Bronchodilation Responsiveness Spirometry Pre/Post Completed Bronchodil Adm 10/15/2017 62097 Bronchodilation Responsiveness Spirometry Pre/Post Completed Bronchodil Adm 10/01/2017 76098 Allergy Injection 2 Or More Completed 09/03/2017 46133 Allergy Injection 2 Or More Completed 08/11/2017 40205 Allergy Injection 2 Or More Completed 07/21/2017 34825 Allergy Injection 2 Or More Completed 07/14/2017 49201 Allergy Antigens Single Or Multiple Completed 07/09/2017 91985 Allergy Injection 2 Or More Completed 07/02/2017 76273 Allergy Injection 2 Or More Completed 06/18/2017 04161 Allergy Injection 2 Or More Completed 06/02/2017 53789 Allergy Injection 2 Or More Completed 06/02/2017 63429 Nitric Oxide Gas Determination Completed 06/02/2017 51032 Bronchodilation Responsiveness Spirometry Pre/Post Completed Bronchodil Adm 05/21/2017 03836 Allergy Injection 2 Or More Completed 04/30/2017 73522 Allergy Injection 2 Or More Completed 04/16/2017 26284 Allergy Injection 2 Or More Completed 04/02/2017 16264 Allergy Injection 2 Or More Completed 03/19/2017 85660 Nitric Oxide Gas Determination Completed 03/19/2017 20359 Bronchodilation Responsiveness Spirometry Pre/Post Completed Bronchodil Adm 03/12/2017 40300 Allergy Injection 2 Or More Completed 02/26/2017 91384 Allergy Injection 2 Or More Completed 02/25/2017 14874 Allergy Antigens Single Or Multiple Completed 02/12/2017 24839 Allergy Injection 2 Or More Completed 01/27/2017 88114 Allergy Injection 2 Or More Completed 01/13/2017 94527 Allergy Injection 2 Or More Completed 12/30/2016 44944 Allergy Injection 2 Or More Completed 12/16/2016 76353 Allergy Injection 2 Or More Completed 12/02/2016 26371 Allergy Injection 2 Or More Completed 11/20/2016 51212 Allergy Injection 2 Or More Completed 11/06/2016 11982 Allergy Injection 2 Or More Completed 10/14/2016 96766 Allergy Injection 2 Or More Completed 10/07/2016 19778 Nitric Oxide Gas Determination Completed 09/25/2016 89301 Allergy Injection 2 Or More Completed 09/16/2016 06355 Bronchodilation Responsiveness Spirometry Pre/Post Completed Bronchodil Adm 09/16/2016 79054 Nitric Oxide Gas Determination Completed 09/16/2016 16079 Allergy Injection 2 Or More Completed 09/09/2016 32232 Allergy Injection 2 Or More Completed 08/28/2016 83546 Allergy Injection 2 Or More Completed 08/21/2016 68213 Allergy Injection 2 Or More Completed 08/14/2016 30948 Allergy Injection 2 Or More Completed 08/05/2016 50766 Allergy Injection 2 Or More Completed 07/31/2016 21048 Allergy Injection 2 Or More Completed 2016 36996 Allergy Injection 2 Or More Completed 07/15/2016 82840 Allergy Injection 2 Or More Completed 07/08/2016 74818 Allergy Injection 2 Or More Completed 06/24/2016 02220 Allergy Injection 2 Or More Completed 06/19/2016 72712 Allergy Injection 2 Or More Completed 06/10/2016 57533 Allergy Injection 2 Or More Completed 06/03/2016 63112 Allergy Injection 2 Or More Completed 05/29/2016 01151 Allergy Injection 2 Or More Completed 05/22/2016 40879 Allergy Injection 2 Or More Completed 05/13/2016 68716 Allergy Injection 2 Or More Completed 05/06/2016 89916 Allergy Injection 2 Or More Completed 05/01/2016 78987 Allergy Injection 2 Or More Completed 04/22/2016 16446 Allergy Injection 2 Or More Completed 04/17/2016 45353 Allergy Injection 2 Or More Completed 04/08/2016 54743 Allergy Injection 2 Or More Completed 04/01/2016 69337 Allergy Injection 2 Or More Completed 03/27/2016 03097 Allergy Injection 2 Or More Completed 03/18/2016 32157 Bronchodilation Responsiveness Spirometry Pre/Post Completed Bronchodil Adm 03/18/2016 75620 Allergy Injection 2 Or More Completed 03/11/2016 38846 Allergy Injection 2 Or More Completed 03/06/2016 55518 Allergy Injection 2 Or More Completed 02/28/2016 91729 Allergy Injection 2 Or More Completed 02/21/2016 34023 Allergy Injection 2 Or More Completed 02/14/2016 34164 Allergy Injection 2 Or More Completed 02/07/2016 73051 Allergy Injection 2 Or More Completed 01/30/2016 23268 Allergy Antigens Single Or Multiple Completed 01/24/2016 99873 Bronchodilation Responsiveness Spirometry Pre/Post Completed Bronchodil Adm Encounters Type Date Location Provider CPT E/M Dx Office Visit 03/19/2017 3:30p Kee Bird RPA-Manjit 97679 J45.40 J30.1 J30.89 Office Visit 10/07/2016 8:30a Kee Bird RPA-Manjit 66220 J45.41 Office Visit 09/16/2016 3:30p Kee Bird RPA-Manjit 91955 J45.40 J30.1 J30.89 Office Visit 03/18/2016 3:30p Kee Bird RPA-Manjit 03556 J45.30 J30.1 J30.89 Office Visit 01/24/2016 3:30p [place] Catherine Bird RPA-Manjit 11033 J30.1 J30.89 J45.30 Plan of Care Future Appointment(s):02/02/2018 3:00 pm - SEBASTIAN Ramirez at [id number] 3:45 pm - Injection 1 at [place]/26/2018 - Usha Rock NPJ30.89 Other allergic rhinitisComments:Patient well controlled on Singulair 10 mg daily.J45.41 Moderate persistent asthma with (acute) exacerbationComments: Patient PFT reveals small airway restriction slightly worse than last PFT, currently FVC 96% of predictive value, and FEF 2575 50 % p\\of Predictive value. NiOx normal. but asymptomatic and tolerating exercise. Report excellent compliance with QVAR 80 mcg ii actuations bid, and albuterol prior to exercise and as needed every 4-6 hours. Follow up in three months.
--- OUTSIDE RECORDS SUMMARY | 2017-11-03 19:40 | XMS REPORT ---
:1990 External Reference #:[id number] Author Organization [facility] Address [address] [place] [address] Phone [phone] Care Team Providers Name Role Phone Maicol Garcia MD Care Team Information Closing Manager Unavailable Payers Type Date Identification Numbers Payment Provider Subscriber Commercial Policy Number: [id number] BS [employer] Maryan You PayID: [id number] [address] [address] [place] [address] Problems Date Description Provider Status Onset: 10/07/2016 [...] daily as needed. Biotin / Active Tablets 69967ayn Unknown Maximum 0000 Strength Vitamin D / [...] Procedures Date CPT Code Description Status 10/15/2017 92623 Allergy Injection 2 Or More Completed 10/01/2017 50168 Allergy Injection 2 Or More Completed 09/03/2017 63624 Allergy Injection 2 Or More Completed 08/11/2017 94944 Allergy Injection 2 Or More Completed 07/21/2017 26229 Allergy Injection 2 Or More Completed 07/14/2017 50561 Allergy Antigens Single Or Multiple Completed 07/09/2017 29792 Allergy Injection 2 Or More Completed 07/02/2017 47529 Allergy Injection 2 Or More Completed 06/18/2017 16888 Allergy Injection 2 Or More Completed 06/02/2017 29272 Allergy Injection 2 Or More Completed 06/02/2017 76137 Nitric Oxide Gas Determination Completed 06/02/2017 07832 Bronchodilation Responsiveness Spirometry Pre/Post Completed Bronchodil Adm 05/21/2017 90350 Allergy Injection 2 Or More Completed 04/30/2017 85466 Allergy Injection 2 Or More Completed 04/16/2017 44010 Allergy Injection 2 Or More Completed 04/02/2017 40056 Allergy Injection 2 Or More Completed 03/19/2017 93890 Bronchodilation Responsiveness Spirometry Pre/Post Completed Bronchodil Adm 03/19/2017 09404 Nitric Oxide Gas Determination Completed 03/12/2017 19752 Allergy Injection 2 Or More Completed 02/26/2017 53399 Allergy Injection 2 Or More Completed 02/25/2017 19792 Allergy Antigens Single Or Multiple Completed 02/12/2017 49507 Allergy Injection 2 Or More Completed 01/27/2017 44418 Allergy Injection 2 Or More Completed 01/13/2017 63733 Allergy Injection 2 Or More Completed 12/30/2016 04184 Allergy Injection 2 Or More Completed 12/16/2016 73623 Allergy Injection 2 Or More Completed 12/02/2016 68708 Allergy Injection 2 Or More Completed 11/20/2016 19854 Allergy Injection 2 Or More Completed 11/06/2016 20946 Allergy Injection 2 Or More Completed 10/14/2016 14261 Allergy Injection 2 Or More Completed 10/07/2016 97845 Nitric Oxide Gas Determination Completed 09/25/2016 96866 Allergy Injection 2 Or More Completed 09/16/2016 78266 Bronchodilation Responsiveness Spirometry Pre/Post Completed Bronchodil Adm 09/16/2016 48309 Nitric Oxide Gas Determination Completed 09/16/2016 05421 Allergy Injection 2 Or More Completed 09/09/2016 20151 Allergy Injection 2 Or More Completed 08/28/2016 17183 Allergy Injection 2 Or More Completed 08/21/2016 19525 Allergy Injection 2 Or More Completed 08/14/2016 48550 Allergy Injection 2 Or More Completed 08/05/2016 95341 Allergy Injection 2 Or More Completed 07/31/2016 67825 Allergy Injection 2 Or More Completed 2016 26401 Allergy Injection 2 Or More Completed 07/15/2016 90540 Allergy Injection 2 Or More Completed 07/08/2016 93237 Allergy Injection 2 Or More Completed 06/24/2016 27724 Allergy Injection 2 Or More Completed 06/19/2016 19183 Allergy Injection 2 Or More Completed 06/10/2016 92133 Allergy Injection 2 Or More Completed 06/03/2016 39920 Allergy Injection 2 Or More Completed 05/29/2016 78886 Allergy Injection 2 Or More Completed 05/22/2016 11547 Allergy Injection 2 Or More Completed 05/13/2016 62517 Allergy Injection 2 Or More Completed 05/06/2016 48780 Allergy Injection 2 Or More Completed 05/01/2016 12340 Allergy Injection 2 Or More Completed 04/22/2016 41092 Allergy Injection 2 Or More Completed 04/17/2016 68506 Allergy Injection 2 Or More Completed 04/08/2016 11110 Allergy Injection 2 Or More Completed 04/01/2016 12253 Allergy Injection 2 Or More Completed 03/27/2016 33478 Allergy Injection 2 Or More Completed 03/18/2016 70031 Bronchodilation Responsiveness Spirometry Pre/Post Completed Bronchodil Adm 03/18/2016 45309 Allergy Injection 2 Or More Completed 03/11/2016 45110 Allergy Injection 2 Or More Completed 03/06/2016 05827 Allergy Injection 2 Or More Completed 02/28/2016 95382 Allergy Injection 2 Or More Completed 02/21/2016 52432 Allergy Injection 2 Or More Completed 02/14/2016 67592 Allergy Injection 2 Or More Completed 02/07/2016 34187 Allergy Injection 2 Or More Completed 01/30/2016 70746 Allergy Antigens Single Or Multiple Completed 01/24/2016 11728 Bronchodilation Responsiveness Spirometry Pre/Post Completed Bronchodil Adm Encounters Type Date Location Provider CPT E/M Dx Office Visit 03/19/2017 3:30p Kee Bird RPA-Manjit 00590 J45.40 J30.1 J30.89 Office Visit 10/07/2016 8:30a Kee Bird RPA-Manjit 46388 J45.41 Office Visit 09/16/2016 3:30p Kee Bird RPA-Manjit 04806 J45.40 J30.1 J30.89 Office Visit 03/18/2016 3:30p Kee Bird RPA-Manjit 81779 J45.30 J30.1 J30.89 Office Visit 01/24/2016 3:30p Kee Bird RPA-C 17098 J30.1 J30.89 J45.30 Plan of Care Future Appointment(s):10/29/2017 3:45 pm - Injection 1 at [place]
--- OUTSIDE RECORDS SUMMARY | 2017-11-03 19:40 | XMS REPORT ---
:1990 External Reference #:[id number] Author Organization [facility] Address [address] [place] [address] Phone [phone] Care Team Providers Name Role Phone Gissell Caruso PA-C Care Team Information Prepress Operator Unavailable Payers Type Date Identification Numbers Payment Provider Subscriber Commercial Policy Number: [id number] [employer]hemy[employer] Maryan You PayID: [id number] [address] [address] [place] [address] Problems Date Description Provider Status Onset: 10/07/2017 Duodenitis Alejandro Holden MD Active Onset: 10/07/2017 Gastroduodenitis Alejandro Holden MD Active Onset: 10/07/2017 Gastric ulcer without hemorrhage, without Alejandro Holden MD Active perforation AND without obstruction Onset: 09/04/2017 Epigastric pain Alejandro Holden MD Active Family History Date Family Member(s) Problem(s) Comments General Non Contributory Social History Type Date Description Comments Marital Status Single Home Environment Lives Alone 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 Smokeless Tobacco Never Used Smokeless Tobacco ETOH Use Occasionally consumes alcohol Recreational Drug Use Denies Drug Use Smoking Patient has never smoked Daily Caffeine Current Caffeine User 1 cup coffee or tea daily Allergies, Adverse Reactions, Alerts Date Description Reaction Status Severity Comments 09/04/2017 Augmentin active 09/04/2017 Mold active 09/04/2017 Metals active 09/04/2017 Environmental active Medications Medication Date Status Form Strength Qnty SIG Indications Ordering Provider Sucralfate 10/07/ Active Tablets 1gm 1 tab by R10.13 2017 otis Holden MD twice a day Omeprazole 09/04/ Active Capsules 40mg 90cap 1 tab by R10.[address] christin Holden MD every day every morning Nexplanon / Active Implant 68mg implant Unknown 0000 Ventolin HFA / Active Aerosol 108(90Bas take 2 Unknown 0000 e) puffs mcg/Act every 6 hours as needed for shortness of breath. Levocetirizine / Active Tablets 5mg 1 po daily Unknown Dihydrochloride 0000 Montelukast / Active Tablets 10mg 1 by mouth Unknown Sodium 0000 every day Qvar Redihaler / Active Aerosol 80mcg/Act 2 puffs Unknown 0000 bid daily Biotin Maximum / Active Tablets 78740rim 1 po daily Unknown Strength 0000 Vitamin D3 Super / Active Capsules 1 by mouth Unknown Strength 0000 every day Ondansetron / Active Tablets 4mg A/D prn Shady, 0000 Dispers CRISTINA Borrero Carafate 09/04/ Hx Tablets 1gm 90tab 1 tab by R10.13 Alejandro 2018 - s otis Holden MD 10/07/ twice a 2018 day Vital Signs Date Vital Result Comment 10/07/2017 BP Systolic Sitting Left Arm 114 mmHg BP Diastolic Sitting Left Arm 70 mmHg Heart Rate 72 /min Respiratory Rate 16 /min Height 65 inches 5'5" Weight 155.00 lb BMI (Body Mass Index) 25.8 kg/m2 BSA (Body Surface Area) 1.78 m2 [place] body weight in kilograms 57 09/04/2017 BP Systolic Sitting Left Arm 114 mmHg BP Diastolic Sitting Left Arm 74 mmHg Heart Rate 62 /min Respiratory Rate 16 /min Height 65 inches 5'5" Weight 156.00 lb BMI (Body Mass Index) 26.0 kg/m2 BSA (Body Surface Area) 1.78 m2 [place] body weight in kilograms 57 Results Test Date Test Result H/L Range Note Laboratory test finding 09/17/2017 HCG,Serum NEGATIVE (Negative) 1 (Qualitative) Laboratory test finding 09/17/2017 Urine HCG TNP Negative 1 (Qualitative) 1 GASTROSCOPY Procedures Date CPT Code Description Status 09/17/2017 76312 EGD With Biopsy Completed 06/18/2017 81333 Allergy Test, Bronchial Completed W/Histamine/Methacholine/Similar CMPNDS 06/18/2017 91250 Bronchospasm Provocation Evaluation Multi Spirometric Completed Determinati 06/18/2017 38763 Spirometry Completed Encounters Type Date Location Provider CPT E/M Dx Office Visit 10/07/2017 8:15[place] [address] K25.9 K29.70 K29.80 Office Visit 09/04/2017 3:15[place] [address] R10.13 Plan of Care 10/07/2017 - Alejandro Holden MDK25.9 Gastric ulcer, unsp as acute or chronic, w/o hemor or perfComments:Likely related to aggressive Alleve useRepeat EGD on end of OctoberK2. Gastritis, unspecified, without bleedingComments:Stable on PPI/ IactufenC39.80 Duodenitis without bleedingComments:Stable on PPI/carafate
== END 2017-11-03 19:35 | disposition home or self-care (01) ==
LOC: UCCORT 18:23
DX: J98.01 Acute bronchospasm (principal); J30.2 Other seasonal allergic rhinitis; Z88.0 Allergy status to penicillin; Z88.8 Allergy status to other drugs, medicaments and biological substances; Z91.048 Other nonmedicinal substance allergy status
CPT/HCPCS: 99212; G0463; J7512

== ENCOUNTER 2019-03-29 08:08 | Emergency (ER) | payer BC ==
[2019-03-29 08:33] VITALS: BP 116/69
--- NOTE | 2019-03-29 08:57 | UC ---
Throat Pain/Nasal Connor HPI - HPI Summary HPI Summary: sore throat x 2 day pain is 6 out of 10 , worse with eating, better with Tylenol + fever, chills, body aches, mold cough , right ear pain has white spots on her left tonsil - History of Current Complaint Chief Complaint: UCRespiratory Stated Complaint: ST HX:ASTHMA Time Seen by Provider: 03/29/19 08:50 Hx Obtained From: Patient Hx Last Menstrual Period: 02/25/19 ?: No Onset/Duration: Gradual Onset, Lasting Days - 2, Still Present Severity: Moderate Pain Intensity: 3 Cough: Nonproductive Associated Signs & Symptoms: Positive: Nasal Discharge, Fever. Negative: Wheezing, Hoarseness, Sinus Discomfort, Vomiting - Allergies/Home Medications Allergies/Adverse Reactions: Allergies Allergy/AdvReac Type Severity Reaction Status Date / Time amoxicillin [From Augmentin] Allergy Hives Verified 03/29/19 08:33 clavulanic acid Allergy Hives Verified 03/29/19 08:33 [From Augmentin] nickel, gold, cobalt Allergy Rash Uncoded 03/29/19 08:33 Home Medications: Home Medications Acetaminophen [Pain Relief] 1,000 mg PO Q6H PRN 03/29/19 [History Confirmed 02/07] Albuterol HFA INHALER* [Ventolin HFA Inhaler*] 2 puff INH Q4H PRN 03/29/19 [ History Confirmed 03/29/19] PMH/Surg Hx/FS Hx/Imm Hx Respiratory History: Asthma - Surgical History Surgical History: Yes Surgery Procedure, Year, and Place: WISDOM TEETH REMOVAL-DR. FARIA[facility]S OFFICE. RT WRIST GANGLION CYST REMOVED-2009, 2014-[facility]. I&D OF RIGHT WRIST CYST X 2 SINCE LAST SX. - Family History Known Family History: Positive: None, Unknown, Hypertension, Diabetes Negative: Cardiac Disease, Respiratory Disease - no asthma - Social History Alcohol Use: Weekly Alcohol Amount: 1-2 PER WK Substance Use Type: None Smoking Status (MU): Never Smoked Tobacco Have You Smoked in the Last Year: No Review of Systems All Other Systems Reviewed And Are Negative: Yes Constitutional: Positive: Fever, Chills, Fatigue Skin: Positive: Negative Eyes: Positive: Negative ENT: Positive: Sore Throat, Nasal Discharge Respiratory: Positive: Cough Cardiovascular: Positive: Negative Gastrointestinal: Positive: Negative Is Patient Immunocompromised?: No Physical Exam Triage Information Reviewed: Yes Appearance: Well-Appearing, No Pain Distress, Well-Nourished Vital Signs: Initial Vital Signs Temp 98.6 F 03/29/19 08:25 Pulse 60 03/29/19 08:25 Resp 22 03/29/19 08:25 BP 116/69 03/29/19 08:25 Pulse Ox 98 03/29/19 08:25 Vital Signs Reviewed: Yes Eye Exam: Normal Eyes: Positive: Conjunctiva Clear ENT: Positive: Normal ENT inspection, Hearing grossly normal, Pharyngeal erythema, Nasal congestion, TMs normal, Tonsillar swelling, Tonsillar exudate. Negative: TM bulging, TM dull, TM red Neck: Positive: Supple, Tenderness @, Enlarged Nodes @ Respiratory: Positive: Chest non-tender, Lungs clear, Normal breath sounds Cardiovascular: Positive: RRR, No Murmur, Pulses Normal Abdominal Exam: Normal Throat Pain/Nasal Course/Dx - Differential Dx/Diagnosis Provider Diagnosis: Pharyngitis Discharge ED - Sign-Out/Discharge Documenting (check all that apply): Patient Departure All imaging exams completed and their final reports reviewed: No Studies - Discharge Plan Condition: Stable Disposition: HOME Prescriptions: Azithromycin TAB* [Zithromax TAB (Z-NANCY) 250 mg #6 tabs] 2 tab PO .TODAY, THEN 1 DAILY #1 nancy Patient Education Materials: Pharyngitis in Children (ED) Referrals: Caty Michael PA [Primary Care Provider] - If Needed - Billing Disposition and Condition Condition: STABLE Disposition: Home
== END 2019-03-29 08:59 | disposition home or self-care (01) ==
LOC: UCCORT 08:08
DX: J02.9 Acute pharyngitis, unspecified (principal); J45.909 Unspecified asthma, uncomplicated; R09.81 Nasal congestion; Z88.0 Allergy status to penicillin; Z88.1 Allergy status to other antibiotic agents; Z91.09 Other allergy status, other than to drugs and biological substances; Z79.899 Other long term (current) drug therapy
CPT/HCPCS: 99202; G0463